=== PATIENT | female | born 1990 | race Caucasian/White ===

== ENCOUNTER 2020-10-03 16:57 | Emergency (ER) | payer OTHER ==
[2020-10-03 17:32] LABS: BASOPHILS # (AUTO) 0.1 10^3/uL (0.0-0.1); BASOPHILS % (AUTO) 0.7 %; EOSINOPHILS # (AUTO) 0.2 10^3/uL (0.0-0.7); HCT - HEMATOCRIT 44.9 % (37.0-47.0); HGB - HEMOGLOBIN 15.1 g/dL (12.0-16.0); LYMPHOCYTES % (AUTO) 19.9 %; MEAN CORPUSCULAR HEMOGLOBIN 28.3 pg (27.0-31.0); MEAN CORPUSCULAR HGB CONC 33.6 g/dL (32.0-36.0); MEAN CORPUSCULAR VOLUME 84.2 fL (81.0-99.0); MEAN PLATELET VOLUME 10.5 fL (7.9-10.8); MONOCYTES # (AUTO) 0.6 10^3/uL (0.0-1.0); MONOCYTES % (AUTO) 6.2 %; NEUTROPHILS # (AUTO) 7.1 10^3/uL (1.5-6.6); NEUTROPHILS % (AUTO) 70.8 %; PLT - PLATELET COUNT 253 10^3/uL (130-450); RED BLOOD COUNT 5.33 10^6/uL (4.20-5.40); RED CELL DISTRIBUTION WIDTH 13.6 % (12.0-15.0)
[2020-10-03 17:52] LABS: ALBUMIN 4.4 g/dL (3.2-5.5); ALBUMIN/GLOBULIN RATIO 0.9 (1.0-2.2); BILIRUBIN,TOTAL 7.1 mg/dL (0.2-1.0); CALCIUM 9.6 mg/dL (8.5-10.3); CREATININE 0.5 mg/dL (0.4-1.0); POTASSIUM 3.6 mmol/L (3.5-5.0); TOTAL PROTEIN 9.2 g/dL (6.7-8.2)
[2020-10-03 17:56] LABS: GLUCOSE, URINE (UA) NEGATIVE (NEGATIVE); LEUKOCYTE ESTERASE, URINE NEGATIVE (NEGATIVE); NITRITE,URINE NEGATIVE (NEGATIVE); OCCULT BLOOD,URINE NEGATIVE (NEGATIVE); PH,URINE 5.5 PH (5.0-7.5)
--- NOTE | 2020-10-03 17:57 | ED Physician Documentation ---
History of Present Illness - Stated complaint Stated Complaint: VOMITING,ABD PX - Chief complaint Chief Complaint: Abd Pain - History obtained from History obtained from: Patient - History of Present Illness Timing: How many days ago (2) Pain level max: 8 Pain level now: 6 - Additonal information Additional information: 30-year-old female presents to the emergency department with 2 days of epigastric abdominal pain followed by nausea and vomiting. She states that her stool is pale in color today. She states no change with antacids. No fevers. No chills. No diarrhea or constipation. Has not had similar symptoms previously. Denies any possibility of . No history of biliary disease. She states she has not been feeling well for 2 weeks Review of Systems Ten Systems: 10 systems reviewed and negative Constitutional: denies: Fever, Chills Respiratory: denies: Cough GI: reports: Nausea, Vomiting (Nonbloody. No vomiting today) : denies: Dysuria, Now EGA Skin: denies: Rash Musculoskeletal: denies: Neck pain, Back pain PD PAST MEDICAL HISTORY - Past Medical History Past Medical History: No - Past Surgical History Past Surgical History: No - Present Medications Home Medications: Ambulatory Orders Medication Instructions Recorded Confirmed Medroxyprogesterone Acetate 150 mg IM DAILY 10/03/20 10/03/20 [Depo-Provera] Multivitamin 1 each PO DAILY 10/03/20 10/03/20 - Allergies Allergies/Adverse Reactions: Allergies Allergy/AdvReac Type Severity Reaction Status Date / Time cefaclor [From [facility]] Allergy Hives Verified 10/03/20 17:06 - Living Situation Living Situation: reports: With family Living Arrangement: reports: At home - Social History Does the pt smoke?: No Smoking Status: Never smoker Does the pt drink ETOH?: No Does the pt have substance abuse?: No - Immunizations Immunizations are current?: Yes - POLST Patient has POLST: No PD ED PE NORMAL - Vitals Vital signs reviewed: Yes - General General: Alert and oriented X 3, No acute distress, Well developed/nourished - HEENT HEENT: PERRL, Moist mucous membranes - Neck Neck: Supple, no meningeal sign - Cardiac Cardiac: RRR, Strong equal pulses - Respiratory Respiratory: No respiratory distress, Clear bilaterally - Abdomen Abdomen: Soft, Non distended, Other (tenderness to palpation epigastric and right upper quadrant. Positive Li sign) - Back Back: No spinal TTP - Derm Derm: Warm and dry - Extremities Extremities: No edema - Neuro Neuro: Alert and oriented X 3 - Psych Psych: Normal mood, Normal affect Results - Vitals Vitals: Vital Signs - 24 hr 10/03/20 10/03/20 10/03/20 17:02 17:30 19:28 Temperature 37.1 C 37.1 C 36.9 C Heart Rate 107 H 107 H 88 Respiratory 16 16 20 Rate Blood Pressure 135/98 H 135/98 H 130/85 H O2 Saturation 97 97 98 10/03/20 21:27 Temperature Heart Rate 97 Respiratory 18 Rate Blood Pressure 130/99 H O2 Saturation 98 Oxygen O2 Source Room air - Labs Labs: Laboratory Tests 10/03/20 10/03/20 10/03/20 17:23 17:23 17:45 WBC 10.0 RBC 5.33 Hgb 15.1 Hct 44.9 MCV 84.2 MCH 28.3 MCHC 33.6 RDW 13.6 Plt Count 253 MPV 10.5 Neut # (Auto) 7.1 H Lymph # (Auto) 2.0 Clinton # (Auto) 0.6 Eos # (Auto) 0.2 Baso # (Auto) 0.1 Absolute Nucleated RBC 0.00 Nucleated RBC % 0.0 PT INR Sodium 138 Potassium 3.6 Chloride 103 Carbon Dioxide 23 Anion Gap 12.0 BUN 9 Creatinine 0.5 Estimated GFR (MDRD) 145 Glucose 112 H Calcium 9.6 Total Bilirubin 7.1 H AST 314 H ALT 589 H Alkaline Phosphatase 203 H Total Protein 9.2 H Albumin 4.4 Globulin 4.8 H Albumin/Globulin Ratio 0.9 L Lipase 27 Urine Color ORANGE Urine Clarity CLEAR Urine pH 5.5 Ur Specific Martin >=1.030 H Urine Protein ... Urine Glucose (UA) NEGATIVE Urine Ketones ... Urine Occult Blood NEGATIVE Urine Nitrite NEGATIVE Urine Bilirubin ... Urine Urobilinogen ... Ur Leukocyte Esterase NEGATIVE Urine RBC 0-5 Urine WBC 0-3 Ur Squamous Epith Cells FEW Squamous Urine Bacteria Rare Urine Mucus Few Strands Ur Microscopic Review INDICATED Urine Culture Comments NOT INDICATED Urine HCG, Qual 10/03/20 10/03/20 17:45 20:13 WBC RBC Hgb Hct MCV MCH MCHC RDW Plt Count MPV Neut # (Auto) Lymph # (Auto) Clinton # (Auto) Eos # (Auto) Baso # (Auto) Absolute Nucleated RBC Nucleated RBC % PT 14.8 H INR 1.4 H Sodium Potassium Chloride Carbon Dioxide Anion Gap BUN Creatinine Estimated GFR (MDRD) Glucose Calcium Total Bilirubin AST ALT Alkaline Phosphatase Total Protein Albumin Globulin Albumin/Globulin Ratio Lipase Urine Color Urine Clarity Urine pH Ur Specific Martin Urine Protein Urine Glucose (UA) Urine Ketones Urine Occult Blood Urine Nitrite Urine Bilirubin Urine Urobilinogen Ur Leukocyte Esterase Urine RBC Urine WBC Ur Squamous Epith Cells Urine Bacteria Urine Mucus Ur Microscopic Review Urine Culture Comments Urine HCG, Qual NEGATIVE - Rads (name of study) RUQ US Radiology: Final report received, EMP read contemporaneously, See rad report (IMPRESSION: 1. Linear calcific density at the distal CBD. This most likely represents choledocholithiasis with stacked tandem stones. 2. Dilated cystic duct. 3. No significant dilatation of the common hepatic duct and intrahepatic bile ducts. 4. Gallbladder is not significantly distended. Gallstones) CT abd/pelvis Radiology: Final report received, EMP read contemporaneously, See rad report (IMPRESSION: Exam is technically difficult due to body habitus and acoustic windows. 1. Large mobile gallstone. No acute cholecystitis. 2. Increased echogenicity of the hepatic parenchyma. This is most commonly seen in hepatic steatosis. Other forms of hepatocellular disease could have a similar appe) PD MEDICAL DECISION MAKING - ED course Complexity details: reviewed results, re-evaluated patient, considered differential, d/w patient, d/w science consultant ED course: 30-year-old female with what appears to be choledocholithiasis. She also has 1 very large gallstone but no evidence of cholecystitis. Pain well controlled. No vomiting. No fever. ERCP is not available here. Discussed the case with GI at [facility], they do not have ERCP capability tomorrow. Also contacted [facility] who is currently boarding patients and does not have any capacity to accept the patient. Call placed to [facility]. Discussed the case with Dr. Alva, GI at [facility] in [place] who graciously accepts in transfer. She recommends MRCP in the morning and will consult. Discussed the case with the hospitalist Dr. Sutherland also graciously accepts the patient. COBRA forms completed. Patient transferred. CT results: IMPRESSION: 1. Linear calcific density at the distal CBD. This most likely represents choledocholithiasis with stacked tandem stones. 2. Dilated cystic duct. 3. No significant dilatation of the common hepatic duct and intrahepatic bile ducts. 4. Gallbladder is not significantly distended. Gallstones are present. 5. Right ovarian cyst measuring 3.1 cm. No evidence of cholecystitis or cholangitis. Antibiotics held. Departure - Departure Disposition: 02 Transfer Acute Care Hosp Clinical Impression: Choledocholithiasis Condition: Stable
[2020-10-03 18:01] LABS: HCG UR QUAL NEGATIVE
[2020-10-03 18:06] LABS: CLARITY,URINE CLEAR (CLEAR)
[2020-10-03 18:08] LABS: BACTERIA,URINE Rare /HPF (None Seen); RBC,URINE 0-5 /HPF (0-5); SQUAMOUS EPITHELIAL CELL,UR FEW Squamous (<= Few); WBC,URINE 0-3 /HPF (0-5)
[2020-10-03 18:09] LABS: MUCUS,URINE Few Strands
--- NOTE | 2020-10-03 19:32 | Ultrasound Report ---
PROCEDURE: Abdomen Limited INDICATIONS: RUQ pain TECHNIQUE: Real-time focused scanning was performed of the abdomen, with image documentation. COMPARISON: None. FINDINGS: Liver: Normal size. Increased in echogenicity. Suboptimally visualized due to body habitus. Gallbladder: Gallbladder is nondistended. Large mobile gallstone measuring 1.4 cm. No gallbladder wal l thickening. No pericholecystic fluid. Negative sonographic Li sign. Biliary ducts: Intrahepatic bile ducts are non-dilated. Extrahepatic bile duct caliber measures 4 m m. Some optimally visualized. Normal is 6-7 mm or less in diameter, or 10 mm or less post-cholecyste ctomy. Pancreas: Well seen. Right kidney: 10.5 cm. Cortex 1.4 cm. No hydronephrosis. IMPRESSION: Exam is technically difficult due to body habitus and acoustic windows. 1. Large mobile gallstone. No acute cholecystitis. 2. Increased echogenicity of the hepatic parenchyma. This is most commonly seen in hepatic steatosis. Other forms of hepatocellular disease could have a similar appearance. Reviewed by: Jameel Carreon MD on 10/03/2020 7:31 PM PDT Approved by: Jameel Carreon MD on 10/03/2020 7:31 PM PDT Station ID: [id number]
[2020-10-03] MEDS ORDERED: IOVERSOL 320 100 ML VIAL IVP ONE (19:51)
[2020-10-03] MEDS: IOVERSOL 320 100 ML VIAL IVP ONE (20:11)
[2020-10-03 20:28] LABS: INR 1.4 (0.8-1.2); PT - PROTHROMBIN TIME 14.8 secs (9.9-12.6)
--- NOTE | 2020-10-03 20:33 | CT Report ---
PROCEDURE: Abdomen/Pelvis W INDICATIONS: abd pain, bili 7, AST 300, ALT 500, vomiting CONTRAST: IV CONTRAST: Optiray 320 ml: 100 PO CONTRAST: *NO PO CONTRAST TECHNIQUE: After the administration of intravenous contrast, 5 mm thick sections acquired from the diaphragms to the symphysis. 5 mm thick coronal and sagittal reformats were acquired. For radiation dose reducti on, the following was used: automated exposure control, adjustment of mA and/or kV according to alen ent size. COMPARISON: Same day abdominal ultrasound. FINDINGS: Image quality: Excellent. ABDOMEN: Lung bases: Lung bases are clear. Heart size is normal. Solid organs: Liver and spleen are normal in size and enhancement. Gallbladder body is not significantly distended. There is a calcified gallstone at the neck measuring 1.4 cm. Layering stones in the fundus. The cystic duct is dilated measuring 1.3 cm, (6/32). Small st one in the cystic duct. Linear calcific density in the region of the CBD measuring 2.1 cm in total l ength, (6/33). The common hepatic duct does not appear dilated. No intrahepatic ductal or ductal dila tation appreciated. Pancreas enhances normally. No peripancreatic fluid collection. No adrenal nodules. Kidneys demonstr ate normal size and enhancement, without hydronephrosis. Peritoneum and bowel: Bowel loops demonstrate normal wall thickness and caliber. Normal appendix. N o free fluid or air. Nodes and vessels: No retroperitoneal or mesenteric adenopathy by size criteria. Aorta and inferior vena cava are normal in size. Circumaortic left renal vein. Miscellaneous: No ventral hernias. PELVIS: Genitourinary: Bladder wall thickness is normal. Right ovarian cyst measuring 3.1 cm, (3/66). Suspec t small left ovarian cyst. Anteverted uterus. Miscellaneous: No inguinal hernias or adenopathy. Bones: No suspicious bony lesions. No vertebral body compression fractures. IMPRESSION: 1. Linear calcific density at the distal CBD. This most likely represents choledocholithiasis with st acked tandem stones. 2. Dilated cystic duct. 3. No significant dilatation of the common hepatic duct and intrahepatic bile ducts. 4. Gallbladder is not significantly distended. Gallstones are present. 5. Right ovarian cyst measuring 3.1 cm. Results were communicated to Dr. Derrick Gonzalez at 10/03/2020 8:30 PM PDT. Reviewed by: Jameel Carreon MD on 10/03/2020 8:32 PM PDT Approved by: Jameel Carreon MD on 10/03/2020 8:32 PM PDT Station ID: [id number]
[2020-10-03 23:00] LABS: B. PARAPERTUSSIS- RESP PCR PAN NOT DETECTED; B. PERTUSSIS- RESP PCR PANEL NOT DETECTED; C. PNEUMONIAE- RESP PCR PANEL NOT DETECTED; CORONAVIRUS 229E-RESP PCR NOT DETECTED; CORONAVIRUS HKU1-RESP PCR NOT DETECTED; CORONAVIRUS NL63-RESP PCR NOT DETECTED; CORONAVIRUS OC43-RESP PCR NOT DETECTED; HUMAN METAPNEUMOVIRUS NOT DETECTED; INFLUENZA A- RESP PCR PANEL NOT DETECTED; INFLUENZA B - RESP PCR PANEL NOT DETECTED; M. PNEUMONIAE- RESP PCR PANEL NOT DETECTED; PARAINFLUENZA VIRUS 1 NOT DETECTED; PARAINFLUENZA VIRUS 2 NOT DETECTED; PARAINFLUENZA VIRUS 3 NOT DETECTED; PARAINFLUENZA VIRUS 4 NOT DETECTED; RHINOVIRUS/ENTEROVIRUS NOT DETECTED; RSV- RESP PCR PANEL NOT DETECTED; SARS-CoV-2 -RESP PCR PANEL NOT DETECTED
[2020-10-03] MEDS: ONDANSETRON 4 MG/2 ML VIAL IVP STA (23:21)
[2020-10-03] MEDS: SODIUM CHLORIDE 0.9% 1,000 ML IV STA (23:25)
[2020-10-03] MEDS: HYDROmorphone 1 MG/ML CARPUJECT IVP STA (23:26)
[2020-10-03 23:37] VITALS: BP 128/90
[2020-10-06 13:29] LABS: HEPATITIS A IGM NON-REACTIVE (NON-REACTIVE); HEPATITIS B CORE ANTIBODY IGM NON-REACTIVE (NON-REACTIVE); HEPATITIS B SURFACE ANTIGEN NON-REACTIVE (NON-REACTIVE); HEPATITIS C ANTIBODY NON-REACTIVE (NON-REACTIVE)
== END 2020-10-04 00:06 | disposition short-term general hospital (02) ==
LOC: ED 16:57
DX: K80.70 Calculus of gallbladder and bile duct without cholecystitis without obstruction (principal); N83.201 Unspecified ovarian cyst, right side; Z20.822 Contact with and (suspected) exposure to COVID-19
CPT/HCPCS: 0202U; 36415; 74177; 76705; 80053; 80074; 81001; 81025; 83690; 85025; 85610; 96374; 96375; 99284; 99285; J1170; Q9967; 81003; 87086

== ENCOUNTER 2020-10-03 23:58 | Outpatient (CLI) | payer OTHER | END 2020-10-03 23:59 | disposition short-term general hospital (02) | LOC: EMS 23:58 | PROVIDERS: ATTEND Emergency Medicine | DX: K80.50 Calculus of bile duct without cholangitis or cholecystitis without obstruction (principal) | CPT/HCPCS: A0425; A0428 ==